=== PATIENT | female | born 1950 | race Caucasian/White ===

== ENCOUNTER 2017-08-20 15:33 | Observation (INO) | payer MEDICARE, OTHER ==
[2017-08-20] MEDS ORDERED: INFLUENZA ADLT QUAD (36MOS+) 2017-18 VAC 0.5 ML SYR IM PRN (16:23)
[2017-08-20 16:40] LABS: HEMATOCRIT 38.4 % (36.0-47.0); HEMOGLOBIN 12.9 g/dL (12.0-15.5); HGB HCT DIFFERENCE 0.3; MEAN CORPUSCULAR HEMOGLOBIN 30.2 pg (27.0-33.4); MEAN CORPUSCULAR HGB CONC 33.6 g/dL (32.0-36.0); MEAN CORPUSCULAR VOLUME 90 fl (80-97); RED BLOOD COUNT 4.27 10^6/uL (3.72-5.28); RED CELL DISTRIBUTION WIDTH 13.5 % (11.5-14.0); WHITE BLOOD COUNT 9.3 10^3/uL (4.0-10.5)
[2017-08-20 16:45] LABS: PROTHROMBIN TIME 14.5 SEC (11.4-15.4)
[2017-08-20 16:46] LABS: PARTIAL THROMBOPLASTIN TIME 30.5 SEC (23.5-35.8)
[2017-08-20 16:50] LABS: APPEARANCE,URINE SLIGHTLY-CLOUDY; BILIRUBIN,URINE NEGATIVE (NEGATIVE); GLUCOSE, URINE NEGATIVE (NEGATIVE); KETONES,URINE NEGATIVE (NEGATIVE); LEUKOCYTE ESTERASE,URINE TRACE (NEGATIVE); NITRITE,URINE NEGATIVE (NEGATIVE); PROTEIN,URINE 30 mg/dL (NEGATIVE); URINE SPECIFIC GRAVITY 1.027
--- NOTE | 2017-08-20 16:57 | RADIOLOGY REPORT (SQ) ---
EXAM DESCRIPTION: CHEST SINGLE VIEW COMPLETED DATE/TIME: 08/20/2017 4:40 pm REASON FOR STUDY: hypertension urgency COMPARISON: None. EXAM PARAMETERS: NUMBER OF VIEWS: One view. TECHNIQUE: Single frontal radiographic view of the chest acquired. RADIATION DOSE: NA LIMITATIONS: None. FINDINGS: LUNGS AND PLEURA: There is partial silhouetting of the right heart border which could be d ue to partial collapse of the middle lobe or prominent epicardial fat pad. MEDIASTINUM AND HILAR STRUCTURES: No masses. Contour normal. HEART AND VASCULAR STRUCTURES: Heart size upper limits of normal. Normal vasculature. BONES: No acute findings. HARDWARE: None in the chest. OTHER: No other significant finding. IMPRESSION: Middle lobe lesion versus epicardial fat pad. Differentiate with chest CT. TECHNICAL DOCUMENTATION: JOB ID: [id number]
[2017-08-20 17:17] LABS: ALANINE AMINOTRANSFERASE 35 U/L (9-52); ALBUMIN 3.6 g/dL (3.5-5.0); ALKALINE PHOSPHATASE 96 U/L (38-126); ANION GAP 11 (5-19); ASPARTATE AMINO TRANSFERASE 23 U/L (14-36); BILIRUBIN,DIRECT 0.4 mg/dL (0.0-0.4); BILIRUBIN,TOTAL 0.7 mg/dL (0.2-1.3); BLOOD UREA NITROGEN 21 mg/dL (7-20); CALCIUM 8.6 mg/dL (8.4-10.2); CARBON DIOXIDE 21 mmol/L (22-30); CHLORIDE 108 mmol/L (98-107); CREATININE RESULT 0.88 mg/dL (0.52-1.25); GLUCOSE 88 mg/dL (75-110); POTASSIUM 4.1 mmol/L (3.6-5.0); SODIUM 140.2 mmol/L (137-145)
[2017-08-20] MEDS ORDERED: MEDROXYPROGESTERONE ACET 10 MG TABLET PO ONE (18:00)
--- NOTE | 2017-08-20 19:34 | PDOC CONSULTATION ---
Consultation Consult Date: 08/20/17 Consult reason:: Vaginal Bleeding History of Present Illness Admission Date/PCP: 08/20/17 16:08 GELY JIMENEZ MD Patient complains of: Pt reports vaginal bleeding, light to moderat, for the past week. Occ clot. Occ cramp History of Present Illness: JOSHUA THACKER is a 66 year old female Pt was dx'ed with Simple Hyperplasia by Dr Tamayo approx 1 month ago. Started on Provera 5mg qday Pt reports off and on vaginal bleeding since starting the Provera Pt self dc'ed her Warfarin last week, was on it for h/o DVT Past Medical History LMP: approx 12 years ago Last Pap Smear: 07/23/17 - Normal per pt Gynecological Infection: No Baby 1 Year: 97 Delivery: Spontaneous Vaginal Delivery Baby 2 Year: 97 Delivery: Spontaneous Vaginal Delivery Endocrine Medical History: Reports: Diabetes Mellitus Type 2 - bordeline Psychiatric Medical History: Reports: Depression Social History Lives with: Family Smoking Status: Former Smoker Last Time Smoked: 2004 Frequency of Alcohol Use: None Hx Recreational Drug Use: No Drugs: None Hx Prescription Drug Abuse: No Family History Family History: Reviewed & Not Pertinent Parental Family History Reviewed: Yes Children Family History Reviewed: Yes Sibling(s) Family History Reviewed.: Yes Medication/Allergy Allergies/Adverse Reactions: Penicillins Allergy (Verified 10/11/15 17:40) Sulfa (Sulfonamide Antibiotics) Adverse Reaction (Verified 08/20/17 18:39) Review of Systems All systems: reviewed and no additional remarkable complaints except as stated - vaginal bleeding Physical Exam - Physical Exam Vital Signs: Temp Pulse Resp BP Pulse Ox 98.3 F 46 L 20 154/48 H 95 08/20/17 16:25 08/20/17 16:25 08/20/17 16:25 08/20/17 16:25 08/20/17 16:25 Intake & Output 08/19/17 08/20/17 08/21/17 06:59 06:59 06:59 Weight 89.131 kg General appearance: PRESENT: no acute distress, cooperative, well-developed Head exam: PRESENT: atraumatic, normocephalic Respiratory exam: PRESENT: clear to auscultation santy, symmetrical, unlabored Cardiovascular exam: PRESENT: RRR GI/Abdominal exam: PRESENT: normal bowel sounds - Non-tender, soft Additional comments: Pelvic exam deffered per patient request Result Laboratory Results: 08/20/17 16:30 08/20/17 16:30 08/20/17 08/20/17 08/20/17 16:05 16:30 16:30 WBC 9.3 RBC 4.27 Hgb 12.9 Hct 38.4 MCV 90 MCH 30.2 MCHC 33.6 RDW 13.5 Plt Count 230 Sodium 140.2 Potassium 4.1 Chloride 108 H Carbon Dioxide 21 L Anion Gap 11 BUN 21 H Creatinine 0.88 Est GFR ( Amer) > 60 Est GFR (Non-Af Amer) > 60 Glucose 88 Calcium 8.6 Total Bilirubin 0.7 AST 23 ALT 35 Alkaline Phosphatase 96 Total Protein 7.0 Albumin 3.6 Urine Color YELLOW Urine Appearance SLIGHTLY-CLOUDY Urine pH 6.0 Ur Specific [place] 1.027 Urine Protein 30 H Urine Glucose (UA) NEGATIVE Urine Ketones NEGATIVE Urine Blood LARGE H Urine Nitrite NEGATIVE Ur Leukocyte Esterase TRACE H Urine WBC (Auto) 9 Urine RBC (Auto) >182 Impressions: Chest X-Ray 08/20/17 15:56 IMPRESSION: Middle lobe lesion versus epicardial fat pad. Differentiate with chest CT. Assessment & Plan - Diagnosis (1) Uterine hyperplasia Is this a current diagnosis for this admission?: Yes (2) Vaginal bleeding Is this a current diagnosis for this admission?: Yes - Time Time Spent: 30 to 50 Minutes Medications reviewed and adjusted accordingly: Yes Anticipated discharge: Home Within: Other - Cuate increase Provera to 10mg per day Pt will f/u 2-3 days after d/c from hospital
--- NOTE | 2017-08-20 20:36 | PDOC H&P ---
History of Present Illness Admission Date/PCP: 08/20/17 16:08 GELY JIMENEZ MD History of Present Illness: Patient is a 66-year-old female she came to the office today for the first time for evaluation of vaginal bleeding, she apparently was diagnosed with endometrial hyperplasia about a month ago by Dr. Tamayo car sales representative and she was started on Provera. She stated that she has been having vaginal bleeding for the last 5-7 days and the last few days she has passed a lot of blood clots. She was on Coumadin because of the deep vein thrombosis of the right lower extremity diagnosed many years ago, she told me that she stopped the Coumadin the last 5 7 days. In the office the blood pressure recorded was 200/92 but she was asymptomatic, there was no chest pain, there was no headache. Because of the elevated blood pressure and the fact that she was bleeding vaginally she was admitted directly from the office into the hospital for evaluation and observation. The hemogram that was done was normal, the blood pressure recorded in the hospital was 156 systolic. She told me that she has no history of hypertension. Past Medical History Psychiatric Medical History: Reports: Depression Social History Lives with: Family Smoking Status: Former Smoker Last Time Smoked: 2004 Frequency of Alcohol Use: None Hx Recreational Drug Use: No Drugs: None Hx Prescription Drug Abuse: No Family History Family History: Reviewed & Not Pertinent Parental Family History Reviewed: Yes Children Family History Reviewed: Yes Sibling(s) Family History Reviewed.: Yes Medication/Allergy Home Medications: Cetirizine HCl [Zyrtec 10 mg Tablet] 10 mg PO DAILY 08/20/17 Fluoxetine HCl [Prozac 20 mg Capsule] 20 mg PO DAILY 08/20/17 Medroxyprogesterone Acet [Provera 10 Mg Tablet] 10 mg PO DAILY 08/20/17 Warfarin Sodium [Coumadin 4 mg Tablet] 4 mg PO Q2D 08/20/17 Warfarin Sodium [Coumadin 5 mg Tablet] 5 mg PO Q2D 08/20/17 Allergies/Adverse Reactions: Penicillins Allergy (Verified 10/11/15 17:40) Sulfa (Sulfonamide Antibiotics) Adverse Reaction (Verified 08/20/17 18:39) Review of Systems Constitutional: ABSENT: chills, fever(s), headache(s), weight gain, weight loss Eyes: ABSENT: visual disturbances Ears: ABSENT: hearing changes Cardiovascular: ABSENT: chest pain, dyspnea on exertion, edema, orthropnea, palpitations Respiratory: ABSENT: cough, hemoptysis Gastrointestinal: ABSENT: abdominal pain, constipation, diarrhea, hematemesis, hematochezia, nausea, vomiting Genitourinary: ABSENT: dysuria, hematuria Musculoskeletal: ABSENT: joint swelling Integumentary: ABSENT: rash, wounds Neurological: ABSENT: abnormal gait, abnormal speech, confusion, dizziness, focal weakness, syncope Psychiatric: ABSENT: anxiety, depression, homidical ideation, suicidal ideation Endocrine: ABSENT: cold intolerance, heat intolerance, menstrual abnormalities, polydipsia, polyuria Hematologic/Lymphatic: ABSENT: easy bleeding, easy bruising, lymphadenopathy Physical Exam Vital Signs: Temp Pulse Resp BP Pulse Ox 98.3 F 82 20 154/48 H 95 08/20/17 16:25 08/20/17 19:00 08/20/17 16:25 08/20/17 16:25 08/20/17 16:25 Intake & Output 08/19/17 08/20/17 08/21/17 06:59 06:59 06:59 Intake Total 130 Output Total 0 Balance 130 Weight 89.131 kg General appearance: PRESENT: no acute distress, well-developed, well-nourished Head exam: PRESENT: atraumatic, normocephalic Eye exam: PRESENT: PERRLA Ear exam: PRESENT: normal external ear exam Neck exam: PRESENT: full ROM Respiratory exam: PRESENT: clear to auscultation santy Cardiovascular exam: PRESENT: RRR, +S1, +S2 Vascular exam: PRESENT: normal capillary refill GI/Abdominal exam: PRESENT: normal bowel sounds, soft Rectal exam: PRESENT: deferred Neurological exam: PRESENT: alert, awake, oriented to person, oriented to place , oriented to time, oriented to situation, CN II-XII grossly intact Psychiatric exam: PRESENT: appropriate affect, normal mood Skin exam: PRESENT: dry, intact, warm. ABSENT: cyanosis, rash Results Laboratory Results: 08/20/17 16:30 08/20/17 16:30 08/20/17 08/20/17 08/20/17 16:05 16:30 16:30 WBC 9.3 RBC 4.27 Hgb 12.9 Hct 38.4 MCV 90 MCH 30.2 MCHC 33.6 RDW 13.5 Plt Count 230 Sodium 140.2 Potassium 4.1 Chloride 108 H Carbon Dioxide 21 L Anion Gap 11 BUN 21 H Creatinine 0.88 Est GFR ( Amer) > 60 Est GFR (Non-Af Amer) > 60 Glucose 88 Calcium 8.6 Total Bilirubin 0.7 AST 23 ALT 35 Alkaline Phosphatase 96 Total Protein 7.0 Albumin 3.6 Urine Color YELLOW Urine Appearance SLIGHTLY-CLOUDY Urine pH 6.0 Ur Specific [place] 1.027 Urine Protein 30 H Urine Glucose (UA) NEGATIVE Urine Ketones NEGATIVE Urine Blood LARGE H Urine Nitrite NEGATIVE Ur Leukocyte Esterase TRACE H Urine WBC (Auto) 9 Urine RBC (Auto) >182 Impressions: Chest X-Ray 08/20/17 15:56 IMPRESSION: Middle lobe lesion versus epicardial fat pad. Differentiate with chest CT. Assessment & Plan - Diagnosis (1) Hypertensive urgency Is this a current diagnosis for this admission?: Yes Plan: She has no history of hypertension, the blood pressure recorded in the office was 200 systolic but she is asymptomatic. The blood pressure recorded in the hospital was 150 systolic. She will need to have 3 consecutive blood pressure recordings to establish the diagnosis of hypertension, the blood pressure is elevated when she came to the office for the first time, she told me she has no hypertension diagnosis I am somewhat reluctant at this time to start her on antihypertensive medication until we establish a diagnosis of hypertension. (2) Uterine hyperplasia Is this a current diagnosis for this admission?: Yes (3) Vaginal bleeding Is this a current diagnosis for this admission?: Yes Plan: She was seen by MOTORBOAT OPERATOR, the Provera dose was adjusted, there is no indication at this time for blood transfusion, the hemogram is normal
[2017-08-20] MEDS ORDERED: ACETAMINOPHEN 325 MG TABLET PO PRN (20:52)
[2017-08-20] MEDS ORDERED: FLUOXETINE HCL 20 MG CAPSULE PO ONE (21:30)
--- NOTE | 2017-08-20 23:43 | EKG REPORT ---
SEVERITY:- NORMAL ECG - SINUS RHYTHM : Confirmed by: Nick Varela 20-Aug-2017 23:43:05
[2017-08-21] MEDS ORDERED: MEDROXYPROGESTERONE ACET 10 MG TABLET PO SCH ×2 (08:00→10:00)
[2017-08-21] MEDS ORDERED: CETIRIZINE 10 MG TABLET PO SCH (10:00)
[2017-08-21] MEDS ORDERED: FLUOXETINE HCL 20 MG CAPSULE PO SCH (10:00)
[2017-08-21 13:40] LABS: ABSOLUTE EOSINOPHILS # (AUTO) 0.1 10^3/uL (0.0-0.6); ABSOLUTE LYMPHOCYTES (AUTO) 1.5 10^3/uL (0.5-4.7); ABSOLUTE MONOCYTES (AUTO) 0.5 10^3/uL (0.1-1.4); ABSOLUTE NEUT (AUTO) 5.1 10^3/uL (1.7-8.2); BASOPHILS % (AUTO) 0.5 % (0-2); EOSINOPHILS % (AUTO) 1.7 % (0-6); HEMATOCRIT 35.9 % (36.0-47.0); HEMOGLOBIN 12.1 g/dL (12.0-15.5); HGB HCT DIFFERENCE 0.4; LYMPHOCYTES % (AUTO) 20.5 % (13-45); MEAN CORPUSCULAR HEMOGLOBIN 30.5 pg (27.0-33.4); MEAN CORPUSCULAR HGB CONC 33.8 g/dL (32.0-36.0); MEAN CORPUSCULAR VOLUME 90 fl (80-97); MONOCYTES % (AUTO) 6.4 % (3-13); RED BLOOD COUNT 3.97 10^6/uL (3.72-5.28); RED CELL DISTRIBUTION WIDTH 13.6 % (11.5-14.0); SEGMENTED NEUTROPHILS % (AUTO) 70.9 % (42-78); WHITE BLOOD COUNT 7.2 10^3/uL (4.0-10.5)
[2017-08-21 13:59] LABS: BLOOD UREA NITROGEN 18 mg/dL (7-20); CALCIUM 9.1 mg/dL (8.4-10.2); CARBON DIOXIDE 23 mmol/L (22-30); GLUCOSE 116 mg/dL (75-110); POTASSIUM 4.3 mmol/L (3.6-5.0); SODIUM 140.9 mmol/L (137-145)
[2017-08-21 14:03] LABS: ANION GAP 11 (5-19); CHLORIDE 107 mmol/L (98-107)
[2017-08-21 17:45] VITALS: BP 144/63
--- NOTE | 2017-08-21 18:46 | PDOC DISCHARGE SUMMARY ---
General - Admit/Disc Date/PCP Admission Date/Primary Care Provider: 08/20/17 16:08 GELY JIMENEZ MD Discharge Date: 08/21/17 - Discharge Diagnosis (1) Hypertensive urgency Is this a current diagnosis for this admission?: Yes (2) Uterine hyperplasia Is this a current diagnosis for this admission?: Yes (3) Vaginal bleeding Is this a current diagnosis for this admission?: Yes - Additional Information Discharge Diet: As Tolerated, Cardiac Discharge Activity: Activity As Tolerated, Balance Activity w/Rest Home Medications: Cetirizine HCl [Zyrtec 10 mg Tablet] 10 mg PO DAILY 08/20/17 Fluoxetine HCl [Prozac 20 mg Capsule] 20 mg PO DAILY 08/20/17 Medroxyprogesterone Acet [Provera 10 Mg Tablet] 10 mg PO DAILY 08/20/17 Medroxyprogesterone Acet [Provera 10 mg Tablet] 10 mg PO QAM tablet 08/21/17 History of Present Illness History of Present Illness: Patient is a 66-year-old female she came to the office today for the first time for evaluation of vaginal bleeding, she apparently was diagnosed with endometrial hyperplasia about a month ago by Dr. Tamayo beam press operator and she was started on Provera. She stated that she has been having vaginal bleeding for the last 5-7 days and the last few days she has passed a lot of blood clots. She was on Coumadin because of the deep vein thrombosis of the right lower extremity diagnosed many years ago, she told me that she stopped the Coumadin the last 5 7 days. In the office the blood pressure recorded was 200/92 but she was asymptomatic, there was no chest pain, there was no headache. Because of the elevated blood pressure and the fact that she was bleeding vaginally she was admitted directly from the office into the hospital for evaluation and observation. The hemogram that was done was normal, the blood pressure recorded in the hospital was 156 systolic. She told me that she has no history of hypertension. Hospital Course Hospital Course: Patient was admitted because of concern for hypertensive urgency, check H&P for details. She also had vaginal bleeding. She was seen by STATIONARY ENGINEER SUPERVISOR regarding vaginal bleeding, she was prescribed Provera. The blood pressure was reasonably controlled during hospital stay, she did not require any medication for the control blood pressure Physical Exam Vital Signs: Temp Pulse Resp BP Pulse Ox 99.0 F 72 22 H 144/63 H 96 08/21/17 18:00 08/21/17 18:00 08/21/17 18:00 08/21/17 16:12 08/21/17 18:00 Intake & Output 08/20/17 08/21/17 08/22/17 06:59 06:59 06:59 Intake Total 633 356 Output Total 0 Balance 633 356 Weight 89.131 kg General appearance: PRESENT: no acute distress, well-developed, well-nourished Head exam: PRESENT: atraumatic, normocephalic Eye exam: PRESENT: conjunctiva pink, EOMI, PERRLA. ABSENT: scleral icterus Ear exam: PRESENT: normal external ear exam Mouth exam: PRESENT: moist, tongue midline Neck exam: PRESENT: full ROM. ABSENT: carotid bruit, JVD, lymphadenopathy, thyromegaly Respiratory exam: PRESENT: clear to auscultation santy Cardiovascular exam: PRESENT: RRR, +S1, +S2. ABSENT: diastolic murmur, rubs, systolic murmur Pulses: PRESENT: normal dorsalis pedis pul, +2 pedal pulses bilateral Vascular exam: PRESENT: normal capillary refill GI/Abdominal exam: PRESENT: normal bowel sounds, soft. ABSENT: distended, guarding, mass, organolmegaly, rebound, tenderness Rectal exam: PRESENT: deferred Neurological exam: PRESENT: alert, awake, oriented to person, oriented to place , oriented to time, oriented to situation, CN II-XII grossly intact. ABSENT: motor sensory deficit Psychiatric exam: PRESENT: appropriate affect, normal mood. ABSENT: homicidal ideation, suicidal ideation Skin exam: PRESENT: dry, intact, warm. ABSENT: cyanosis, rash Results Laboratory Results: 08/21/17 13:29 08/21/17 13:29 08/21/17 08/21/17 13:29 13:29 WBC 7.2 RBC 3.97 Hgb 12.1 Hct 35.9 L MCV 90 MCH 30.5 MCHC 33.8 RDW 13.6 Plt Count 222 Seg Neutrophils % 70.9 Lymphocytes % 20.5 Monocytes % 6.4 Eosinophils % 1.7 Basophils % 0.5 Absolute Neutrophils 5.1 Absolute Lymphocytes 1.5 Absolute Monocytes 0.5 Absolute Eosinophils 0.1 Absolute Basophils 0.0 Sodium 140.9 Potassium 4.3 Chloride 107 Carbon Dioxide 23 Anion Gap 11 BUN 18 Creatinine 0.90 Est GFR ( Amer) > 60 Est GFR (Non-Af Amer) > 60 Glucose 116 H Calcium 9.1 Impressions: Chest X-Ray 08/20/17 15:56 IMPRESSION: Middle lobe lesion versus epicardial fat pad. Differentiate with chest CT.
== END 2017-08-21 18:22 | disposition home or self-care (01) ==
LOC: UNDOADMOB 15:33 → 3W 15:33
PROVIDERS: ADMIT Internal Medicine; ATTEND Internal Medicine
PROC: 3E0234Z Introduction of Serum, Toxoid and Vaccine into Muscle, Percutaneous Approach (ICD-10-PCS; principal; 2017-08-21)
DX: I16.0 Hypertensive urgency (principal); N85.2 Hypertrophy of uterus; N93.9 Abnormal uterine and vaginal bleeding, unspecified; Z86.718 Personal history of other venous thrombosis and embolism; Z23 Encounter for immunization; Z79.3 Long term (current) use of hormonal contraceptives; Z87.891 Personal history of nicotine dependence
CPT/HCPCS: 36415 ×2; 85025; 85027; 85610; 85730; 80076; 80048 ×2; 81001; 71010; 90686; 93005; 93010; G0008; G0378 ×2; A9270 ×5; 90471; J3490

== ENCOUNTER 2017-11-30 10:48 | Day surgery (SDC) | payer MEDICARE, OTHER ==
[2017-11-23 10:17] LABS: HEMATOCRIT 39.2 % (36.0-47.0); MEAN CORPUSCULAR HEMOGLOBIN 29.1 pg (27.0-33.4); MEAN CORPUSCULAR HGB CONC 33.1 g/dL (32.0-36.0); MEAN CORPUSCULAR VOLUME 88 fl (80-97); PLATELET COUNT 305 10^3/uL (150-450); RED BLOOD COUNT 4.45 10^6/uL (3.72-5.28); RED CELL DISTRIBUTION WIDTH 13.7 % (11.5-14.0); WHITE BLOOD COUNT 8.1 10^3/uL (4.0-10.5)
[2017-11-23 10:42] LABS: APPEARANCE,URINE SLIGHTLY-CLOUDY; BILIRUBIN,URINE NEGATIVE (NEGATIVE); COLOR,URINE YELLOW; GLUCOSE, URINE NEGATIVE (NEGATIVE); KETONES,URINE NEGATIVE (NEGATIVE); LEUKOCYTE ESTERASE,URINE TRACE (NEGATIVE); NITRITE,URINE NEGATIVE (NEGATIVE); PROTEIN,URINE NEGATIVE (NEGATIVE); URINE SPECIFIC GRAVITY 1.025
[~2017-11-30 10:48] MED LIST: LACTATED RINGERS 1000 ML IV PRN; LIDOCAINE 0.5% INJ-PF (5 MG/ML) 50 ML SDV SUBCUT PRN
[2017-11-30] MEDS ORDERED: FENTANYL CITRATE INJ/PF 100 MCG/2 ML AMPUL ONE ×2 (11:27)
[2017-11-30] MEDS ORDERED: MIDAZOLAM 2 MG/2 ML INJ ONE (11:27)
[2017-11-30] MEDS ORDERED: PROPOFOL INJ 200 MG/20 ML VIAL IV ONE (11:28)
[2017-11-30] MEDS ORDERED: ACETAMINOPHEN 100 ML IV ONE (11:28)
--- NOTE | 2017-11-30 12:23 | Operative Report ---
Operative Report DATE OF SURGERY: 11/30/17 PREOPERATIVE DIAGNOSIS: Postmenopausal bleeding POSTOPERATIVE DIAGNOSIS: Same OPERATION: Hysteroscopy fractional D&C, Myosure SURGEON: MELANY RAUSCH ANESTHESIA: LMAC TISSUE REMOVED OR ALTERED: Uterine contents COMPLICATIONS: None ESTIMATED BLOOD LOSS: None INTRAOPERATIVE FINDINGS: Uterine polyps on the anterior uterine wall PROCEDURE: Patient was taken the OR and placed in supine position. Anesthesia was induced. She is placed in dorsolithotomy position using Duncan stirrups. Her perineum and vagina were prepared and draped sterile fashion. She had voided prior to the procedure so we did not use a catheter. Speculum was placed in the anterior lip cervix grasped with tenaculum. Uterus sounded to 7 cm before and after the case. Endocervical curettings were obtained. Cervix was gently dilated and the hysteroscope inserted. On the anterior uterine wall there were 5 rounded objects which appear to be polyp in nature. These were removed with the myosure device. At the end the case all instruments were removed. She is brought out of recovery room in stable condition.
[2017-11-30] MEDS ORDERED: MEPERIDINE HCL/PF INJ 25 MG/1 ML DISP.SYRIN IV PRN (13:01)
[2017-11-30] MEDS ORDERED: PROMETHAZINE HCL INJ 25 MG/1 ML VIAL IV PRN (13:01)
[2017-11-30] MEDS ORDERED: DIPHENHYDRAMINE HCL 50 MG/ML VIAL IV PRN (13:01)
[2017-11-30] MEDS ORDERED: FENTANYL CITRATE INJ/PF 100 MCG/2 ML AMPUL IV PRN (13:01)
[2017-11-30] MEDS ORDERED: IBUPROFEN 800 MG TABLET PO PRN (13:22)
[2017-11-30] MEDS ORDERED: OXYCODONE-ACETAMINOPHEN 5-325 MG TABLET PO PRN ×2 (13:22)
[2017-11-30 14:29] VITALS: BP 153/70
== END 2017-11-30 14:20 | disposition home or self-care (01) ==
LOC: OROUT 10:48
PROVIDERS: ATTEND Obstetrics & Gynecology
PROC: 0UDB8ZX Extraction of Endometrium, Via Natural or Artificial Opening Endoscopic, Diagnostic (ICD-10-PCS; principal; 2017-11-30 12:00)
DX: N95.0 Postmenopausal bleeding (principal); R73.03 Prediabetes; J45.909 Unspecified asthma, uncomplicated; Z88.0 Allergy status to penicillin; Z79.899 Other long term (current) drug therapy; Z87.891 Personal history of nicotine dependence; Z79.01 Long term (current) use of anticoagulants; Z86.73 Personal history of transient ischemic attack (TIA), and cerebral infarction without residual deficits; Z86.718 Personal history of other venous thrombosis and embolism
CPT/HCPCS: 36415; 85027; 81001; 88305 ×2; 58558; J2250; J3010; J2704; J0131; 952

== ENCOUNTER → 2018-04-15 | Outpatient (CLI) | payer MEDICARE, OTHER ==
--- NOTE | 2018-04-15 16:29 | WOMENS IMAGING REPORT ---
EXAM DESCRIPTION: 3D SCREENING MAMMO BILAT COMPLETED DATE/TIME: 04/15/2018 2:05 pm REASON FOR STUDY: ROUTINE SCREENING; Z12.31 Z12.31 ENCNTR SCREEN MAMMOGRAM FOR MALIGNANT NEOPLASM O F JEANNE COMPARISON: 04/08/2012 and 11/08/2010. TECHNIQUE: Standard craniocaudal and mediolateral oblique views of each breast recorded using digita l acquisition and breast tomosynthesis. LIMITATIONS: None. FINDINGS: No masses, calcifications or architectural distortion. No areas of suspicion. Read with the assistance of CAD. .[facility] - R2 Cenova Version 1.3 .[facility] - R2 Cenova Version 1.3 .[facility] - R2 Cenova Version 2.4 .[facility] [place] R2 Cenova Version 2.4 .[facility] - R2 Second Mate Version 9.2 IMPRESSION: NORMAL MAMMOGRAM. BIRADS 1. BREAST DENSITY: a. The breasts are almost entirely fatty. BIRAD: 1 NEGATIVE RECOMMENDATION: ROUTINE SCREENING COMMENT: The patient has been notified of the results by letter per MQSA requirements. Additional no tification policies are in place for contacting patient with suspicious or incomplete findings. Quality ID #225: The [employer] recommends an annual screening mammogram for women aged 40 years or over. This facility utilizes a reminder system to ensure that all patients receive reminder letters, and/or direct phone calls for appointments. This includes reminders for routine scr eening mammograms, diagnostic mammograms, or other Breast Imaging Interventions when appropriate. Th is patient will be placed in the appropriate reminder system. The [employer] (ACR) has developed recommendations for screening MRI of the breast s in certain patient populations, to be used in conjunction with mammography. Breast MRI surveillanc e may be appropriate for women with more than 20% lifetime risk of developing breast cancer as deter mined by genetic testing, significant family history of the disease, or history of mantle radiation f or Hodgkins Disease. ACR Practice Guidelines 2008. DBT Technology DBT is a type of tomographic mammography. With conventional mammography, overlapping breast tissue ma y make lesions difficult to detect, even with good compression. DBT uses an x-ray tube that rotates a round the breast, taking images at different angles. These images are then combined to create thin sl ices of the breast that the radiologist can view as a 3D reconstruction. The List[employer] unit can perform full-field digital mammograms (2D imaging); or DBT (3D imaging); or both, in a combination mode that quickly performs both the mammogram and the tomosynthesis scan while the breast is still compressed. PQRS 6045F: Fluoroscopic imaging is not utilized for breast tomosynthesis. TECHNICAL DOCUMENTATION: FINDING NUMBER: (1) ASSESSMENT: (1) JOB ID: [id number] [employer]- All Rights Reserved Reading location - IP/workstation name: [email or web address]
== END ==
LOC: WI 13:16
PROVIDERS: ATTEND Internal Medicine
DX: Z12.31 Encounter for screening mammogram for malignant neoplasm of breast (principal)
CPT/HCPCS: 77063; 77067

== ENCOUNTER → 2018-08-21 | Outpatient (CLI) | payer MEDICARE, OTHER ==
--- NOTE | 2018-08-21 15:24 | RADIOLOGY REPORT (SQ) ---
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 TECHNIQUE: Dynamic and static gonzales-scale images acquired of the thyroid gland. Selected additional c olor/power Doppler images recorded. All images stored to PACS. LIMITATIONS: None. FINDINGS: RIGHT LOBE: Normal size. Homogeneous echotexture. No cystic or solid masses. LEFT LOBE: Normal size. Homogeneous echotexture. No cystic or solid masses. ISTHMUS: Normal size. Homogeneous echotexture. No cystic or solid masses. OTHER: No other significant finding. IMPRESSION: NORMAL THYROID ULTRASOUND. TECHNICAL DOCUMENTATION: JOB ID: [id number] [employer]- All Rights Reserved Reading location - IP/workstation name: [email or web address]
== END ==
LOC: RAD 14:13
PROVIDERS: ATTEND Internal Medicine
DX: E04.9 Nontoxic goiter, unspecified (principal)
CPT/HCPCS: 76536

== ENCOUNTER → 2018-12-23 | Outpatient (CLI) | payer MEDICARE, OTHER ==
--- NOTE | 2018-12-23 16:00 | RADIOLOGY REPORT (SQ) ---
EXAM DESCRIPTION: U/S RETROPERITON (RENAL/AORTA) COMPLETED DATE/TIME: 12/23/2018 2:48 pm REASON FOR STUDY: R94.4 ABNORMAL RESULTS OF KIDNEY FUNCTION STUDIES R94.4 ABNORMAL RESULTS OF KIDNE Y FUNCTION STUDIES COMPARISON: None. TECHNIQUE: Dynamic and static grayscale images acquired of the kidneys and bladder and recorded on P ACS. Additional selected color Doppler and spectral images recorded. LIMITATIONS: The examination is limited due to the patient's body habitus. FINDINGS: RIGHT KIDNEY: The right kidney measures 8.9 x 4.0 x 4.2 cm, normal size. Normal echogenic ity. No solid or suspicious masses. No hydronephrosis. No calcifications. LEFT KIDNEY: The left kidney measures 8.0 x 4.4 x 4.1 cm, normal size. Normal echogenicity. No solid or suspicious masses. No hydronephrosis. No calcifications. BLADDER: No masses. Right ureteral jet is not visualized. Left ureteral jet visualized. OTHER FINDINGS: No other significant finding. IMPRESSION: 1. NORMAL RENAL AND BLADDER ULTRASOUND. TECHNICAL DOCUMENTATION: JOB ID: [id number] [employer]- All Rights Reserved Reading location - IP/workstation name: [email or web address]
== END ==
LOC: RAD 13:51
PROVIDERS: ATTEND Internal Medicine
DX: R94.4 Abnormal results of kidney function studies (principal)
CPT/HCPCS: 76770